=== PATIENT | female | born 1935 | race Caucasian/White ===

== ENCOUNTER 2018-06-07 08:21 | Day surgery (SDC) | payer MEDICARE, SELFPAY ==
[2018-05-29 09:41] VITALS: BMI 27.6
--- NOTE | 2018-06-07 09:12 | PM.PREOP ---
Pre-operative Note Interval Note History & Physical reviewed/Exam performed by Physician: Yes Changes to H&P: No
[2018-06-07] MEDS: LACTATED RINGERS 1,000 ML 42 ML IV (09:15)
[2018-06-07 09:16] VITALS: BP 140/73; PULSE 80; RESP 16; TEMP 36.1; O2SAT 97; BMI 27.6
[2018-06-07 09:33] LABS: BUN Creatinine Ratio 25.7 (6-22); Blood Urea Nitrogen 18 mg/dL (7-17); Calcium 9.3 mg/dL (8.4-10.2); Carbon Dioxide 22 mmol/L (22-32); Chloride 107 mmol/L (98-107); Estimated Glomerular Filt Rate > 60.0 mL/min (>60); Glucose 126 mg/dL (80-110); HEMOLYSIS 18 (0-50); Potassium 4.5 mmol/L (3.4-5.1); Sodium 138 mmol/L (137-145)
[2018-06-07] MEDS: CEFAZOLIN 2 GM/100 ML FROZ.PIGGY IV (09:42)
--- NOTE | 2018-06-07 09:55 | SUR.OPER ---
Lithotomy on padded OR bed, head on pillow, arms secured on padded arm boards at <90 degrees abduction. Legs secured in padded yellow fins stirrups.
[2018-06-07] MEDS: BUPIVACAINE 0.5% W/ EPI (PF) VIAL 30 ML INJ (10:00)
[2018-06-07 10:45] VITALS: BP 126/70; PULSE 83; RESP 12; TEMP 36.3; O2SAT 95
--- NOTE | 2018-06-07 10:49 | P.OP_ITS ---
Operative Date/Time/Diagnoses Date of procedure: 06/07/18 Time of procedure: 10:45 Post-op diagnosis: same Procedure & Clinicians Procedure: Colpocleisis Same procedure as scheduled: Yes Indications: Symptomatic cystocele and vaginal wall prolapse status post hysterectomy Surgeon: Jud Hurst Click Yes if Unassisted: Yes Anesthesia Type: Sedation and Local Operative Notes Findings: Cystocele that prolapses out of the hymen with mild rectocele and enterocele Closure Type: primary Specimen(s): none sent Estimated Blood Loss (mL): 50 Blood products transfused: none Procedure in detail: - Patient was brought to the operating room where she was in a supine position in [facility] and underwent IV sedation. She was prepped and draped in the usual sterile fashion. Her bladder was drained. 2 g of Ancef were in prior to beginning of the case. Warming was in place. Pulsatile stockings were in place. Area on anterior and posterior wall of the prolapse were marked with a marking pen and injected with a dilute solution of half percent Marcaine with epinephrine. The skin was incised with a scalpel and undermined with and removed removed with Metzenbaum scissors. bleeding was controlled with the Bovie. 2-0 Vicryl suture was used in an interrupted fashion to close anterior to posterior on the sides creating a tunnel from the vaginal apex to the external area. The vaginal incision was closed from anterior to posterior fully inverting the cervix. Counts of instruments and sponges were correct. Patient went to recovery room in good condition. Complications: none Condition: stable Disposition: same day surgery Plan for aftercare: Follow-up in 2 weeks
[2018-06-07 11:00] VITALS: BP 126/70; PULSE 83; RESP 16; TEMP 36.3; O2SAT 96
--- NOTE | 2018-06-07 11:09 | SUR.PHASEII ---
Pt arrived in phase II from OR, report received. VS stable.
== END 2018-06-07 11:30 | disposition home or self-care (01) ==
PROVIDERS: PCP Nurse Practitioner; Visit Provider Specialist
PROC: (CPT 57120; principal; 2018-06-07 09:45)
DX: N99.3 Prolapse of vaginal vault after hysterectomy (principal); N39.498 Other specified urinary incontinence; I10 Essential (primary) hypertension; E78.5 Hyperlipidemia, unspecified; Z90.710 Acquired absence of both cervix and uterus; I48.91 Unspecified atrial fibrillation; E11.9 Type 2 diabetes mellitus without complications; Z79.84 Long term (current) use of oral hypoglycemic drugs
CPT/HCPCS: 57120; 80048; J0690; J2704; J3010

== ENCOUNTER → 2018-10-14 11:18 | Outpatient (CLI) | payer MEDICARE, SELFPAY ==
--- NOTE | 2018-10-14 11:20 | DI.RAD.S_ITS ---
PROCEDURE: XR LUMBAR SPINE MIN 4V INDICATIONS: lower back pain TECHNIQUE: 5 views of the lumbar spine were acquired. COMPARISON: [facility] [place], BRYCE, SPINE LUMB 2 OR 3VW, 03/23/2016, 15:04. [facility], MR, MR LUMBAR SPINE WO CON, 10/14/2018, 11:33. [facility], CR, L-SPINE 2-3 VIEWS, 04/29/2015, 8:58. FINDINGS: Bones: T12 and L2 compression fractures, which have developed since 03/23/16 although no more recent comparison studies. L4 compression fracture appears unchanged. There is redemonstration of L3-L4 posterior spinal fixation and interbody cage graft in unchanged alignment. Hardware appears intact. Prominent lucent surrounding the L3 fixation screw is unchanged. Levoscoliosis. Severe diffuse disc space narrowing. Multilevel degenerative endplate sclerosis and spurring. Diffuse facet arthropathy. Soft tissues: Overlying bowel gas pattern is normal. No suspicious soft tissue calcifications. IMPRESSION: T12 and L2 compression fractures, new since 03/23/16 although no more recent comparison studies. Unchanged L4 compression fracture. Levoscoliosis as before. Diffuse lumbar and lower thoracic spondylosis and facet arthropathy. Prominent lucency surrounding the L3 pedicle screws however this appears grossly unchanged Dictated by: Anival Milton M.D. on 10/14/2018 at 14:12 Approved by: Anival Milton M.D. on 10/14/2018 at 14:16
--- NOTE | 2018-10-14 11:20 | DI.MRI.S_ITS ---
PROCEDURE: MR LUMBAR SPINE WO CON INDICATIONS: lower back pain TECHNIQUE: Noncontrast sagittal T1 spin echo and T2 fast echo, sagittal STIR, axial T1 and T2 fast spin echo through the lumbar spine. In cases with scoliosis, additional coronal T2 fast spin echo may be performed. COMPARISON: [facility], CR, XR LUMBAR SPINE MIN 4V, 10/14/2018, 12:12. FINDINGS: Image quality: Limited by susceptibility artifact related to metallic orthopedic hardware. Alignment and Curvature: There is trace L1-L2 and L2-L3 retrolisthesis. There is trace L4-L5 anterolisthesis. There is 32? of convex left lumbar spine scoliosis. Bones: Postsurgical changes compatible with L4-L5 posterior and interbody fusion are noted. Loss of anterior height noted of the L2 vertebral body compatible with chronic compression deformity. No acute vertebral body compression fractures. Spinal Cord: Conus medullaris terminates at the L1 level. Visualized cord demonstrates normal signal and size. Paraspinous Soft Tissues: No paravertebral masses. Multiple gallstones are visualized gallbladder with the largest visualized stone measuring 2.5 cm. L1-L2: Loss of disc signal and slight loss of disc height. Moderate, diffuse disc bulge. Moderate bilateral facet hypertrophy. Moderate narrowing of the central canal. Moderate bilateral neural foraminal narrowing. No definite neural impingement. L2-L3: Loss of disc signal and height. Moderate, diffuse disc bulge. Moderate bilateral facet hypertrophy. Mild to moderate narrowing of the central canal. Moderate right and mild left neural foraminal narrowing. No definite neural impingement. L3-L4: Loss of disc signal and slight loss of disc height. Mild, diffuse disc bulge. Mild bilateral facet hypertrophy. Mild to moderate narrowing of the central canal. Right neural foramen is obscured by susceptibility artifact related to metallic orthopedic hardware. Wcgi-ef-sjxltcks left neural foraminal narrowing. No definite neural impingement. L4-L5: Loss of disc signal. Mild, diffuse disc bulge. Moderate bilateral facet hypertrophy. Moderate narrowing of the central canal. Moderate right and nntqufio-lq-yrbrom left neural foraminal narrowing with slight compression of the exiting left L4 nerve root. L5-S1: Loss of disc signal and height. Moderate, diffuse disc bulge. Mild right and moderate left facet hypertrophy. Left central disc protrusion. Left central disc protrusion abuts and displaces the traversing left S1 nerve root. Severe left neural foraminal narrowing with compression of the exiting left L5 nerve root. IMPRESSION: 1. Postsurgical changes. 2. Convex left scoliosis. 3. Multilevel degenerative disc disease. 4. Multilevel facet arthropathy. 5. Moderate L1-L2 and L4-L5 central canal narrowing. Mild to moderate L2-L3 and L3-L4 central canal narrowing. 6. Severe left L5-S1 neural foraminal narrowing. Moderate right and ecvdcgeu-wt-itikqy left L4-L5 neural foraminal narrowing. Moderate bilateral L1-L2 neural foraminal narrowing. Moderate right and mild left L2-L3 neural foraminal narrowing. Mild to moderate left L3-L4 neural foraminal narrowing. 6. L5-S1-1 central disc protrusion which abuts and displaces the traversing left S1 nerve root. Please correlate clinically. 7. Compression of the exiting left L4 nerve root and the exiting left L5 nerve root secondary to neural foraminal narrowing. Please correlate with clinical data. 8. Cholelithiasis. Dictated by: Opal Christian MD, PhD on 10/14/2018 at 15:14 Approved by: Opal Christian MD, PhD on 10/14/2018 at 15:22
== END ==
PROVIDERS: PCP Nurse Practitioner; Visit Provider Registered Nurse
DX: M47.816 Spondylosis without myelopathy or radiculopathy, lumbar region (principal); M47.814 Spondylosis without myelopathy or radiculopathy, thoracic region; M47.817 Spondylosis without myelopathy or radiculopathy, lumbosacral region; M48.54XA Collapsed vertebra, not elsewhere classified, thoracic region, initial encounter for fracture; M48.56XA Collapsed vertebra, not elsewhere classified, lumbar region, initial encounter for fracture; M41.9 Scoliosis, unspecified; M48.061 Spinal stenosis, lumbar region without neurogenic claudication; M48.07 Spinal stenosis, lumbosacral region; M51.36 Other intervertebral disc degeneration, lumbar region; M51.27 Other intervertebral disc displacement, lumbosacral region; K80.20 Calculus of gallbladder without cholecystitis without obstruction; Z98.1 Arthrodesis status
CPT/HCPCS: 72110; 72148

== ENCOUNTER → 2019-02-17 13:25 | Outpatient (CLI) | payer MEDICARE, OTHER, SELFPAY ==
--- NOTE | 2019-02-17 | DI.MRI.S_ITS ---
PROCEDURE: MR LUMBAR SPINE WO CON INDICATIONS: Wedge compression fracture TECHNIQUE: Noncontrast sagittal T1 spin echo and T2 fast echo, sagittal STIR, axial T1 and T2 fast spin echo through the lumbar spine. In cases with scoliosis, additional coronal T2 fast spin echo may be performed. COMPARISON: [facility], CT, CT CHEST ABDOMEN PELVIS WITHOUT CONTRAST, 12/22/2018, 15:07. [facility], MR, MR LUMBAR SPINE WO CON, 10/14/2018, 11:33. FINDINGS: Image quality: Diagnostic. Alignment and Curvature: Again noted is prior laminectomy and transpedicular fusion at L3-4 level unchanged from prior study. Moderate dextroscoliosis of thoracolumbar spine and compensatory levoscoliosis of lumbar spine is unchanged from previous study. Bone Marrow: There is interval development of significant marrow edema involving L1 vertebral body with subtle internal linear fluid signal concerning for nondisplaced fracture of L1 vertebral body. Chronic appearing mild anterior wedge compression deformity at L2 level is seen with up to 10% loss of L2 vertebral body height. No other compression fracture is seen the lumbar spine vertebral bodies. Spinal Cord: Conus medullaris terminates at the T12-L1 level. Visualized cord demonstrates normal signal and size. Paraspinous Soft Tissues: No paravertebral masses. T12-L1: No significant disc bulge. Mild retropulsion of L1 posterior wall is noted causing kzro-py-mocnjxiq central canal stenosis. There is mild compression of descending left L1 nerve root and exiting left T12 nerve root. L1-L2: Decreased intervertebral disc space and degenerative endplate changes are seen. There is broad-based disc bulge and bilateral facet arthrosis causing moderate central canal stenosis and left worse in right bilateral neuroforaminal narrowing. There is compression of bilateral exiting L1 nerve roots. L2-L3: Decreased intervertebral disc space is seen. Broad-based disc bulge and bilateral facet arthrosis is noted causing moderate to severe central canal stenosis and bilateral neuroforaminal narrowing. Bulging disc likely contacting the bilateral exiting L2 nerve roots. L3-L4: Post fusion changes are noted at this level. Bilateral facet arthrosis is seen with mild hypertrophy of ligamentum flavum with mild central canal stenosis and mild bilateral neuroforaminal narrowing. L4-L5: Broad-based disc bulge and bilateral facet arthrosis with hypertrophy of ligamentum flavum is seen causing mild central canal stenosis and moderate bilateral neuroforaminal narrowing. Bulging disc likely contacting the bilateral exiting L4 nerve roots. L5-S1: Decreased intervertebral disc space and degenerative endplate changes are seen. There is diffuse disc bulge and central to left-sided disc herniation with bilateral facet arthrosis causing mild to moderate central canal stenosis worsened by bilateral neuroforaminal narrowing. Bulging disc is seen contacting left L5 and S1 nerve roots. IMPRESSION: 1. Prior transpedicular fusion at L3-4 level. S-shaped scoliosis of thoracolumbar spine is again seen and unchanged. 2. Interval development of marrow edema and subtle fracture line through L1 vertebral bodies suggestive of acute to subacute nondisplaced L1 fracture. No significant loss of L1 vertebral body height at this time. Slight retropulsion of L1 posterior wall causing mild central canal stenosis at this level. Chronic appearing mild anterior wedge compression deformity at L2 level. 3. Degenerative disc bulge and bilateral facet arthrosis throughout lumbar spine causing isbj-ra-klwfztaj central canal stenosis and bilateral neuroforaminal narrowing as described in detail above. Dictated by: Duong Jean M.D. on 02/17/2019 at 15:55 Approved by: Duong Jean M.D. on 02/17/2019 at 16:08
== END ==
PROVIDERS: Family Provider Nurse Practitioner; PCP Nurse Practitioner; Visit Provider Orthopaedic Surgery
DX: S32.020A Wedge compression fracture of second lumbar vertebra, initial encounter for closed fracture (principal); M47.816 Spondylosis without myelopathy or radiculopathy, lumbar region; M51.36 Other intervertebral disc degeneration, lumbar region; M48.061 Spinal stenosis, lumbar region without neurogenic claudication; M47.817 Spondylosis without myelopathy or radiculopathy, lumbosacral region; M51.37 Other intervertebral disc degeneration, lumbosacral region; M48.07 Spinal stenosis, lumbosacral region; M41.85 Other forms of scoliosis, thoracolumbar region; Z98.1 Arthrodesis status
CPT/HCPCS: 72148

== ENCOUNTER 2019-03-18 12:44 | Day surgery (SDC) | payer MEDICARE, OTHER, SELFPAY ==
[2019-03-18] VITALS (9 sets, daily range): BP systolic 100–187; BP diastolic 52–83; PULSE 58–94; RESP 9–19; TEMP 35.9–36.9; O2SAT 9–98
--- NOTE | 2019-03-18 | PATH_ITS ---
[facility] Accession Number: [id number] . 01 Material submitted: . bone - L1 BONE . 01 Clinical history: . LUMBAR KYPHOPLASTY . 02 Diagnosis: L1 Bone, Biopsy: Fragments of bone with no diagnostic abnormality. No evidence of neoplasm. MRV 03/20/2019 1009 Local . 02 Electronically signed: . Malcolm Wolf MD, PhD, Pathologist NPI- [id number] . 01 Gross description: . Received in formalin, labeled L1 bone, are multiple fragments of jang gritty bone (0.2 x 0.1 x less than 0.1 cm in aggregate). Decalcified and entirely submitted in cassette A1. ([id number]) /[facility] 03/19/2019 1434 Local . 02 Pathologist provided ICD-10: M41.56 . 02 CPT . 624399 Performed at: 01 [facility] [address] [facility] [place], [place], [place] [id number] MD Salvador Boateng MD Phone: [phone] Performed at: 02 [facility] [address] [place], [place] [id number] MD Che Laughlin MD Phone: [phone]
--- NOTE | 2019-03-18 | DI.RAD.S_ITS ---
PROCEDURE: XR LUMBAR SPINE 2-3V INDICATIONS: L1 KYPHO TECHNIQUE: 3 views of the lumbar spine were acquired. COMPARISON: [facility], , XR LUMBAR SPINE MIN 4V, 10/14/2018, 12:12. FINDINGS: Intraoperative images demonstrating localization and cement and what appears to be L1. Mild cement extravasation is noted. IMPRESSION: L1 kyphoplasty images as above. Dictated by: Nahomi Zendejas M.D. on 03/18/2019 at 16:33 Approved by: Nahomi Zendejas M.D. on 03/18/2019 at 16:34
[2019-03-18] MEDS: LACTATED RINGERS 1,000 ML 42 ML IV (13:26)
--- NOTE | 2019-03-18 13:33 | PM.PREOP ---
Pre-operative Note Interval Note History & Physical reviewed/Exam performed by Physician: Yes Changes to H&P: No
--- NOTE | 2019-03-18 13:33 | PM.OP.1 ---
Operative Date/Time/Diagnoses Date of procedure: 03/18/19 Time of procedure: 15:01 Pre-op diagnosis: L1 compression fracture Back pain Post-op diagnosis: same Procedure & Clinicians Procedure: L1 kyphoplasty Same procedure as scheduled: Yes Indications: [age] year old female with intractable pain from compression fracture. They had failed conservative management and requested operative intervention. Risks and benefits of surgery were discussed and appropriate consents were obtained. Surgeon: Nam Hong Click Yes if Unassisted: Yes Anesthesia Type: General Operative Notes Findings: None Closure Type: primary Specimen(s): other (L1 vertebral body) Estimated Blood Loss (mL): 2 Procedure in detail: The patient was brought to the operating room and intubated on the table. They were then rolled over to the well-padded prone position. Time-out was performed. We confirmed positioning with two fluoroscopy views. Due to her severe scoliosis, we had to rotate the table significantly to get our images. The back was prepped and draped in the standard sterile fashion. Preoperative antibiotics were given. Using fluoroscopic guidance, the planned incision site was infiltrated with Marcaine with epinephrine and injected down to the entry site of the left pedicle of L1. A small stab incision was made and we advanced a Jamshiedi needle down the left pedicle into the vertebral body. A bone biopsy was harvested from this and sent to pathology. We then passed the DFine osteotome and opened it up to create a void inside the vertebral body. We then began injecting the cement. This was done with frequent fluoroscopy imaging. There was no extravasation. Once we had good fill of the L1 vertebral body the injection was stopped and the trocars were removed. Final x-rays were taken. The wound was cleaned. Steri-Strips and sterile dressing were placed. Patient was rolled over, extubated, and brought to recovery without complications. Complications: none Post-operative Condition: stable Disposition: PACU Plan for aftercare: Outpatient. Activity as tolerated.
[2019-03-18] MEDS: CEFAZOLIN 2 GM/100 ML FROZ.PIGGY IV (14:20)
--- NOTE | 2019-03-18 14:41 | SUR.OPER ---
Prone on padded Kypho bed, head in foam head support, gel chest rolls, gel pad under knees, pillows x2 under lower legs, toes free of pressure, arms secured on padded arm boards at <90 degrees abduction. Taped to bed, placed by surgeon at thighs, chest, and lower legs
--- NOTE | 2019-03-18 14:43 | SUR.OPER ---
Reddness noted on patient's sacrum and buttocks during positioning. Right medial buttock also noted to have breakdown of skin with opened red sore approximately [address] Hong aware.
[2019-03-18] MEDS: BUPIVACAINE 0.25% W/ EPI (PF) 10 ML VIAL 60 ML INJ (14:50)
--- NOTE | 2019-03-18 15:00 | SUR.OPER ---
Allevyn Gentle Border bandage 3in x 3in placed on right opened wound area of right buttock per Dr. Chavez at the end of the case.
== END 2019-03-18 17:00 | disposition home or self-care (01) ==
PROVIDERS: PCP Nurse Practitioner; Visit Provider Orthopaedic Surgery
PROC: (CPT 22514; principal; 2019-03-18 15:45)
DX: S32.010A Wedge compression fracture of first lumbar vertebra, initial encounter for closed fracture (principal); M41.56 Other secondary scoliosis, lumbar region; M54.9 Dorsalgia, unspecified; W06.XXXA Fall from bed, initial encounter; M48.00 Spinal stenosis, site unspecified; E66.9 Obesity, unspecified; I10 Essential (primary) hypertension; E78.00 Pure hypercholesterolemia, unspecified; E11.9 Type 2 diabetes mellitus without complications; Z79.84 Long term (current) use of oral hypoglycemic drugs
CPT/HCPCS: 22514; 72100; 76000; C1776; J0690; J2704; J3010

== ENCOUNTER → 2019-07-26 10:45 | Outpatient (CLI) | payer SELFPAY ==
[2019-07-29 07:00] LABS: COVID19 Sendout Not Detected (Not Detected)
== END ==
PROVIDERS: PCP Nurse Practitioner; Referring Provider Internal Medicine; Visit Provider Internal Medicine
DX: Z11.59 Encounter for screening for other viral diseases (principal)
CPT/HCPCS: 87635

== ENCOUNTER → 2019-08-13 13:33 | Outpatient (CLI) | payer MEDICARE, OTHER, SELFPAY ==
--- NOTE | 2019-08-13 13:37 | DI.RAD.S_ITS ---
PROCEDURE: XR PEL MIN 3V INDICATIONS: Fractured left femur and ischium TECHNIQUE: 3 view(s) of the pelvis acquired. COMPARISON: [facility], CT, CT KNEE LEFT WITHOUT CONTRAST, 07/07/2019, 4:52. [facility], CT, CT PELVIS WITHOUT CONTRAST, 07/07/2019, 6:21. [facility], CR, XR FEMUR LT MIN 2V, 08/13/2019, 13:45. FINDINGS: Bones: Osteopenia. Fracture of the left inferior pubic ramus seen on prior CT is not well-visualized. No dislocation. No suspicious bony lesions. Pedicle screws at L3-L4. Left hip total arthroplasty. Proximal left femur ORIF partially visualized. No periprosthetic lucency seen. Severe right hip DJD. Soft tissues: Prominent stool in the colon. No suspicious soft tissue calcifications. Vascular calcifications. IMPRESSION: Prior left inferior pubic ramus fracture is less conspicuous. Osteopenia. Dictated by: Dhruv Hu M.D. on 08/13/2019 at 14:28 Approved by: Dhruv Hu M.D. on 08/13/2019 at 14:37
--- NOTE | 2019-08-13 13:37 | DI.RAD.S_ITS ---
PROCEDURE: XR FEMUR LT MIN 2V INDICATIONS: Left femur and ischium fracture TECHNIQUE: 4 views of the femur were acquired. COMPARISON: [facility], CR, XR FEMUR 2+ VIEWS LEFT, 07/07/2019, 3:56. [facility], CT, CT KNEE LEFT WITHOUT CONTRAST, 07/07/2019, 4:52. [facility], CT, CT PELVIS WITHOUT CONTRAST, 07/07/2019, 6:21. FINDINGS: Bones: Post ORIF of distal femur fracture. There is near-anatomic alignment. No pedrito-screw lucency. Left hip total arthroplasty. No periprosthetic lucency. Previously seen proximal fibular fractures is not well evaluated. No suspicious bony lesions. Soft tissues: No suspicious soft tissue calcifications or masses. Vascular calcifications. Small knee joint effusion. IMPRESSION: Near-anatomic alignment post ORIF of distal femur fracture. Left total hip arthroplasty is in satisfactory position. Dictated by: Dhruv Hu M.D. on 08/13/2019 at 14:37 Approved by: Dhruv Hu M.D. on 08/13/2019 at 14:41
== END ==
PROVIDERS: PCP Nurse Practitioner; Referring Provider Registered Nurse; Visit Provider Registered Nurse
DX: S32.602D Unspecified fracture of left ischium, subsequent encounter for fracture with routine healing (principal); S72.492D Other fracture of lower end of left femur, subsequent encounter for closed fracture with routine healing; M16.11 Unilateral primary osteoarthritis, right hip; M85.88 Other specified disorders of bone density and structure, other site; X58.XXXD Exposure to other specified factors, subsequent encounter; Z96.642 Presence of left artificial hip joint
CPT/HCPCS: 72190; 73552

== ENCOUNTER 2019-09-01 11:15 | Emergency (ER) | payer MEDICARE, OTHER, SELFPAY ==
[2019-09-01] VITALS (9 sets, daily range): BP systolic 129–175; BP diastolic 62–72; PULSE 56–72; RESP 10–27; O2SAT 97–100
--- NOTE | 2019-09-01 | DI.CT.S_ITS ---
PROCEDURE: CT STROKE INDICATIONS: CODE STROKE TECHNIQUE: Noncontrast 4.5 mm thick angled axial sections acquired from the foramen magnum to the vertex, with coronal reformats. For radiation dose reduction, the following was used: automated exposure control, adjustment of mA and/or kV according to patient size. COMPARISON: [facility], CT, CT HEAD WITHOUT CONTRAST, 12/22/2018, 15:05. FINDINGS: Image quality: Excellent. CSF spaces: Basal cisterns are patent. No extra-axial fluid collections. The ventricles are symmetric in size and shape. Brain: No intracranial bleeds or masses. There is cerebral volume loss for age, with resultant ventricular and sulcal prominence. There are periventricular and deep white matter chronic small vessel ischemic changes. There also is a new finding of subacute ischemic injury involving the right frontal lobe, where low attenuation extending from the cortex into the deep white matter measures up to approximately 4 cm transverse and 3.8 cm craniocaudad with an AP dimension of approximately 4.9 cm. No hemorrhage is associated, mild effacement of the adjacent cortical sulci is present. There is intracranial internal carotid artery atherosclerosis. Skull and face: Calvarium and visualized facial bones appear intact, without suspicious lesions. Sinuses: Visualized sinuses and mastoids are clear. IMPRESSION: Subacute stroke present without internal hemorrhage involving the right frontal area, with mild mass effect. Findings immediately called to the emergency room physician caring for the patient at 11:30 in the morning. This study fulfills neurological imaging criteria for inclusion or exclusion of acute stroke therapies based on available published neurological guidelines. Dictated by: Dagoberto Kaplan M.D. on 09/01/2019 at 11:28 Approved by: Dagoberto Kaplan M.D. on 09/01/2019 at 11:33
--- NOTE | 2019-09-01 11:28 | ED_ITS ---
HPI - Neuro Symptoms/Deficit General Chief Complaint: Neuro Symptoms/Deficit Stated Complaint: Code Stroke Time Seen by Provider: 09/01/19 11:17 Source: EMS Mode of arrival: EMS Limitations: other History of Present Illness HPI Narrative: CC: Stroke with aphasia and left hemiparesis HPI: The patient is an 84-year-old female who is a resident at [facility] who suddenly this morning at approximately 10:38 a.m. developed acute aphasia and unable to move her left side. The patient has a history of atrial fibrillation and and is on Xarelto. Approximately 6 weeks ago the patient fell and fractured her leg and also developed a stroke which affected her left side and was treated at [facility]. It is my understanding that at that time she questionably received tPA. At this time the patient is a do not resuscitate comfort measures only. I discussed the situation with the patient's son-in-law Ciaran Portillo who confirmed these orders. At 11:30 a.m. the radiologist called and stated the patient had subacute edematous stroke in the right frontal lobe. The patient was able to talk when she arrived here she denied having a headache short of breath or having chest pain. She did not have any belly pain did not feel sick to her stomach when having nausea did not have any diarrhea or urinary symptoms. On Anticoagulants: Yes Related Data Home Medications Medication Instructions Recorded Confirmed alendronate 70 mg tablet 70 mg PO QWEEK 05/09/18 10/21/18 atorvastatin 40 mg tablet 40 mg PO DAILY 05/09/18 10/21/18 diltiazem HCl 300 mg 300 mg PO DAILY 05/09/18 10/21/18 capsule,extended release 24 hr glimepiride 4 mg tablet 4 mg PO QAM 05/09/18 10/21/18 lisinopril 20 mg tablet 20 mg PO DAILY 05/09/18 10/21/18 metformin 850 mg tablet 850 mg PO DAILY 05/09/18 10/21/18 multivitamin-calcium carb-iron 1 tab PO DAILY tab 05/09/18 10/21/18 warfarin 5 mg tablet 5 mg PO 4XW 05/09/18 10/21/18 warfarin 5 mg tablet 7.5 mg PO 3XW 05/09/18 10/21/18 warfarin 5 mg PO DAILY 03/18/19 03/18/19 Previous Rx's Medication Instructions Recorded tramadol 50 mg tablet 50 mg PO TID PRN #60 tab 09/16/18 lidocaine 5 % topical patch 1 patch TOP DAILY #15 each MDD 12 10/21/18 hours in a 24 hour period Allergies Allergy/AdvReac Type Severity Reaction Status Date / Time oxycodone [OXYCODONE] AdvReac Unknown NAUSEA Verified 04/04/19 12:14 Review of Systems Review of Systems Narrative: Her review of systems were limited in all were negative except for those that we could obtain an mentioned in the history of present illness. Patient History Medical History A-fib (Acute) Diabetes (Acute) HLD (hyperlipidemia) (Acute) HTN (hypertension) (Acute) Urinary incontinence (Acute) Surgical History H/O: hysterectomy (Acute ~1991) History of lumbar fusion (Acute 04/29/15) History of total left hip arthroplasty (Acute ~2012) Social History household members: spouse Smoking Status: Never smoker alcohol intake: current Smoking Status: Never smoker alcohol intake frequency: holidays/special occasions only Substance Use Type: does not use Exam Narrative Exam Narrative: PHYSICAL EXAM: CONSTITUTIONAL: Awake, speaks with a slurred speech. Does not move her left side. HEAD: AT/NC EENT: PERRL, FROM of eyes, no nystagmus field of vision appears to be intact. NOSE:No epistaxis or nasal drainage MOUTH:Oral mucosa is moist and pink, posterior pharynx is without erythema or exudate. The patient smile is symmetrical. She is able to puff of her cheeks symmetrically. She moves her tongue symmetrically. She is able to wrinkle her forehead and close her eyes. She follows directions. NECK: Supple, no obvious JVD, Trachea is midline without stridor, no palpable LN. SPINE: Palpationof the cervical, Thoracic, Lumbar or Sacral spine reveals no gross deformity or tenderness. No CVA tenderness. THORAX: No deformity, retractions, chest wall tenderness. LUNGS: Clear, symmetrical breath sounds without respiratory distress. HEART: Normal heart tones, regular rhythm and rate without murmur. ABDOMEN: Soft, non-tender, no guarding, rebound, rigidity or palpable mass. EXTREMITIES: No edema, deformity, tenderness or cyanosis. SKIN: No rash, bruising, petechiae or purpura. NEURO: Awake, cranial nerves II-XII are symmetrical , right arm and right leg but is unable to move her left side.. Her NIH Stroke Scale was 12. Initial Vital Signs Initial Vital Signs: Vital Signs Pulse Rate 72 09/01/19 11:35 Respiratory Rate 21 09/01/19 11:35 Pulse Oximetry 100 09/01/19 11:35 Scores NIH Stroke Scale Level of Conciousness: Not alert, but arousable by minor stim to obey, answer or respond Ask month/age: Answers both questions correctly. Open/close eyes, close hand: Performs one task correctly Best gaze horizontal: Partial gaze palsy, can be overcome by finger tracking, head turning Visual gabriel: No visual loss Facial palsy: Normal symetrical movement Left arm drift: Some effort against gravity, cannot maintain, drifts down to bed Right arm drift: No drift for full 10 sec Left leg drift: Some effort against gravity, cannot maintain, drifts down to bed Right leg drift: No drift for full 10 sec Limb ataxia: Present in two limbs Sensory on face/arms/legs: Mild to moderate sensory loss, can tell touch Best language: Mild to moderate, slurs some words Dysarthria: Mild to mod,some slurring Extinction or inattention: No abnormality Total NIH Stroke scale score: 12 Course Course Course Narrative: The patient is on Xarelto. The radiologist called and stated that the patient has a subacute stroke in the right frontal lobe. Will discuss with [facility]. The patient is also a do not resuscitate comfort only. 1220: I discussed the patient with the [facility] neurologist and with the patient being a do not resuscitate comfort measures only her subacute right frontal lobe stroke being on Xarelto their recommendation is to make her comfortable and no further evaluation or intervention. 1304: I discussed the patient with Dr. Pérez who is going to discuss the patient with the social workers but believes that the patient can be [facility] since she is a do not resuscitate comfort measures only. 1333: I discussed the patient with the nurse practitioner at [facility] who accepted the patient. She will write her the patient's comfort medications. Morphine concentrate sublingually and scopolamine for any secretions. The patient will be transferred back to [facility]. Orders Ordered: ED Orders 09/01/19 11:35 Type and Screen Stat 09/01/19 12:17 Urinalysis and Microscopic Stat Urine Culture Stat Urine Drug Screen, Rapid Stat Discontinued Medications Sodium Chloride (Normal Saline 0.9%) 1,000 mls @ 150 mls/hr IV CONT ODALIS Last Admin: 09/01/19 11:40 Dose: 150 mls/hr Documented by: GABY Vital Signs Vital signs: Vital Signs - 8 hr 09/01/19 12:31 09/01/19 12:34 09/01/19 12:45 Pulse Rate 56 L 69 64 Respiratory Rate 13 27 H 16 Blood Pressure 161/67 H 129/62 150/65 H Pulse Oximetry 100 100 99 09/01/19 13:00 09/01/19 13:15 Pulse Rate 62 57 L Respiratory Rate 10 L 16 Blood Pressure 175/72 H 156/72 H Pulse Oximetry 99 100 MDM - Neuro Symptoms/Deficit Medical Records Attestation: I reviewed the patient's medical records. Lab Data Attestation: I reviewed the patient's lab results. Result diagrams: 09/01/19 11:02 09/01/19 11:02 Labs: Lab Results 09/01/19 09/01/19 09/01/19 Range/Units 11:02 11:02 11:02 WBC 10.8 (4.5-11.0) X10^3/uL RBC 4.00 (4.0-5.2) X10^6/uL Hgb 12.6 (12.0-16.0) g/dL Hct 37.7 (36-46) % MCV 94.3 (80-100) fL MCH 31.5 (26-34) PG MCHC 33.4 (30-36) % RDW 16.9 H (11.6-14.8) % Plt Count 342 (150-400) X10^3/uL Neut % (Auto) 79.9 H (50-75) % Lymph % (Auto) 12.6 L (25-40) % [place] % (Auto) 6.0 (3-14) % Eos % (Auto) 0.9 L (2-4) % Baso % (Auto) 0.6 (0-2) % Neut # (Auto) 8600 H (9279-2534) /uL Lymph # (Auto) 1400 (7170-4870) /uL [place] # (Auto) 700 (0-900) /uL Eos # (Auto) 100 (0-450) /uL Baso # (Auto) 100 (0-100) /uL PT 20.4 H (10.1-12.7) SECONDS INR 1.8 H (0.9-1.3) APTT 34 (26.4-36.2) SECONDS Sodium 131 L (137-145) mmol/L Potassium 4.6 (3.4-5.1) mmol/L Chloride 97 L (98-107) mmol/L Carbon Dioxide 27 (22-32) mmol/L BUN 30 H (7-17) mg/dL Creatinine 0.82 (0.52-1.04) mg/dL Estimated GFR > 60.0 (>60) mL/min BUN/Creatinine Ratio 36.6 H (6-22) Glucose 279 H (80-110) mg/dL Calcium 9.0 (8.4-10.2) mg/dL Total Bilirubin 0.5 (0.2-1.3) mg/dL AST 19 (14-36) IU/L ALT 10 (<35) IU/L Alkaline Phosphatase 93 (38-126) U/L Total Creatine Kinase 50 (30-135) U/L CK-MB (CK-2) TNP CK-MB (CK-2) Rel Index TNP Troponin I < 0.012 (0.01-0.034) ng/mL Total Protein 6.1 L (6.3-8.2) g/dL Albumin 3.0 L (3.5-5.0) g/dL Globulin 3.1 (1.7-4.1) g/dL Albumin/Globulin Ratio 1.0 (1.0-2.8) Urine Color Urine Appearance Urine pH (4.5-8.0) Ur Specific [place] (1.000-1.035) Urine Protein (Negative) Urine Glucose (UA) (Negative) g/dL Urine Ketones (NEGATIVE) Urine Occult Blood (Negative) Urine Nitrate (Negative) Urine Bilirubin (NEGATIVE) Urine Urobilinogen (0.2) E.U./dL Ur Leukocyte Esterase (NEGATIVE) Urine RBC (0-5/HPF) Urine WBC (0-5/HPF) Ur Squamous Epith Cells (0-5/HPF) Amorphous Sediment Urine Bacteria (None) Urine Mucus (Negative) Ur Culture Indicated? U Opiates 300ng/mL cut (Negative) Ur Oxycodone Screen (Negative) Urine Methadone Screen (Negative) Ur Barbiturates Screen (Negative) U Tricyclic Antidepress (Negative) Ur Phencyclidine Scrn (Negative) Ur Amphetamines Screen (Negative) U Methamphetamines Scrn (Negative) Ur MDMA Scrn (Ecstasy) (Negative) U Benzodiazepines Scrn (Negative) Urine Cocaine Screen (Negative) U Marijuana (THC) Screen (Negative) Blood Type Antibody Screen 09/01/19 09/01/19 09/01/19 Range/Units 11:35 12:17 12:17 WBC (4.5-11.0) X10^3/uL RBC (4.0-5.2) X10^6/uL Hgb (12.0-16.0) g/dL Hct (36-46) % MCV (80-100) fL MCH (26-34) PG MCHC (30-36) % RDW (11.6-14.8) % Plt Count (150-400) X10^3/uL Neut % (Auto) (50-75) % Lymph % (Auto) (25-40) % Bosque % (Auto) (3-14) % Eos % (Auto) (2-4) % Baso % (Auto) (0-2) % Neut # (Auto) (9679-4655) /uL Lymph # (Auto) (1375-0192) /uL Bosque # (Auto) (0-900) /uL Eos # (Auto) (0-450) /uL Baso # (Auto) (0-100) /uL PT (10.1-12.7) SECONDS INR (0.9-1.3) APTT (26.4-36.2) SECONDS Sodium (137-145) mmol/L Potassium (3.4-5.1) mmol/L Chloride (98-107) mmol/L Carbon Dioxide (22-32) mmol/L BUN (7-17) mg/dL Creatinine (0.52-1.04) mg/dL Estimated GFR (>60) mL/min BUN/Creatinine Ratio (6-22) Glucose (80-110) mg/dL Calcium (8.4-10.2) mg/dL Total Bilirubin (0.2-1.3) mg/dL AST (14-36) IU/L ALT (<35) IU/L Alkaline Phosphatase (38-126) U/L Total Creatine Kinase (30-135) U/L CK-MB (CK-2) CK-MB (CK-2) Rel Index Troponin I (0.01-0.034) ng/mL Total Protein (6.3-8.2) g/dL Albumin (3.5-5.0) g/dL Globulin (1.7-4.1) g/dL Albumin/Globulin Ratio (1.0-2.8) Urine Color Yellow Urine Appearance Cloudy Urine pH 5.0 (4.5-8.0) Ur Specific [place] 1.025 (1.000-1.035) Urine Protein Negative (Negative) Urine Glucose (UA) Negative (Negative) g/dL Urine Ketones Negative (NEGATIVE) Urine Occult Blood 1+ H (Negative) Urine Nitrate Negative (Negative) Urine Bilirubin Negative (NEGATIVE) Urine Urobilinogen 0.2 (0.2) E.U./dL Ur Leukocyte Esterase 2+ H (NEGATIVE) Urine RBC 1-5/hpf (0-5/HPF) Urine WBC >100/hpf H (0-5/HPF) Ur Squamous Epith Cells 0-1 /hpf (0-5/HPF) Amorphous Sediment 1+ Urine Bacteria Many (>30) H (None) Urine Mucus 2+ H (Negative) Ur Culture Indicated? Specimen cultured U Opiates 300ng/mL cut Negative (Negative) Ur Oxycodone Screen Negative (Negative) Urine Methadone Screen Negative (Negative) Ur Barbiturates Screen Negative (Negative) U Tricyclic Antidepress Negative (Negative) Ur Phencyclidine Scrn Negative (Negative) Ur Amphetamines Screen Negative (Negative) U Methamphetamines Scrn Negative (Negative) Ur MDMA Scrn (Ecstasy) Negative (Negative) U Benzodiazepines Scrn Negative (Negative) Urine Cocaine Screen Negative (Negative) U Marijuana (THC) Screen Negative (Negative) Blood Type O Positive Antibody Screen Negative Point of Care Testing Glucose POC 265 ECG Data Attestation: I personally reviewed and interpreted this ECG as follows: Interpretation: The patient's EKG obtained at 11:2 9:13 a.m. revealed atrial fibrillation with a ventricular rate of 68. Her QRS was 80 milliseconds in duration. QTC was 412 milliseconds. Left axis deviation head oliveira. The patient has a small R-wave in lead III otherwise it looks like a QS wave with upright T-waves. The patient has a QS wave in lead V1 with a flutter baseline such that we are unable to really identify true P-wave. There are no acute diagnostic ST segment changes or T-wave changes. Discharge Plan Departure [facility] Clinical Impression: Chronic atrial fibrillation Stroke Qualifiers: CVA mechanism: unspecified Qualified Code(s): I63.9 - Cerebral infarction, unspecified Cerebrovascular accident Qualifiers: CVA mechanism: embolism Precerebral and cerebral artery: unspecified cerebral artery Qualified Code(s): I63.40 - Cerebral infarction due to embolism of unspecified cerebral artery Hemiparesis Qualifiers: Hemiparesis etiology: late effect of cerebrovascular disease Cerebrovascular disease type: unspecified Hemiparesis laterality: left nondominant side Qualified Code(s): I69.954 - Hemiplegia and hemiparesis following unspecified cerebrovascular disease affecting left non-dominant side Discharge Date/Time: 09/01/19 14:20 Instructions: DI for Stroke-Ischemic, DI for Atrial Fibrillation Activity Restrictions/Additional Instructions: 1. Follow-up with the [facility]IN[employer] INSPECTOR and physician 2. Return to the emergency department if there are any problems that is unable to be taking care of by the nurse practitioner. 3. Take the medications as prescribed and discussed with the caring nurse ly patel. Referrals: Rachel Naidu ARNP [Primary Care Provider] -
--- NOTE | 2019-09-01 11:29 | DI.RAD.S_ITS ---
PROCEDURE: XR CHEST 1V INDICATIONS: stroke left hemiparesis TECHNIQUE: One view of the chest was acquired. COMPARISON: [facility], CR, XR CHEST 1 VIEW, 07/07/2019, 4:18. FINDINGS: Surgical changes and devices: Partially visualized lumbar spine fixation hardware. Status post L1 kyphoplasty. Lungs and pleura: Lungs are clear. No pleural effusions or pneumothorax. Mediastinum: Mediastinal contours appear normal. Heart is enlarged Bones and chest wall: Left third and fourth lateral rib fractures of indeterminate age. No suspicious bony lesions. Overlying soft tissues appear unremarkable. IMPRESSION: No acute cardiopulmonary disease process. Dictated by: Opal Christian MD, PhD on 09/01/2019 at 11:45 Approved by: Opal Christian MD, PhD on 09/01/2019 at 11:46
[2019-09-01 11:34] LABS: Add Manual Diff / Slide Review NO; Basophils Absolute Auto 100 /uL (0-100); Basophils Percent Auto 0.6 % (0-2); Eosinophils Absolute Auto 100 /uL (0-450); Eosinophils Percent Auto 0.9 % (2-4); Hematocrit 37.7 % (36-46); Hemoglobin 12.6 g/dL (12.0-16.0); Lymphocytes Absolute Auto 1400 /uL (1100-4500); Lymphocytes Percent Auto 12.6 % (25-40); Mean Corpuscular HGB Conc 33.4 % (30-36); Mean Corpuscular Hemoglobin 31.5 PG (26-34); Mean Corpuscular Volume 94.3 fL (80-100); Monocytes Absolute Auto 700 /uL (0-900); Neutrophils Absolute Auto 8600 /uL (1500-7000); Neutrophils Percent Auto 79.9 % (50-75); Platelet Count 342 X10^3/uL (150-400); Red Cell Distribution Width 16.9 % (11.6-14.8); White Blood Cell Count 10.8 X10^3/uL (4.5-11.0)
[2019-09-01 11:36] LABS: INR 1.8 (0.9-1.3); Prothrombin Time 20.4 SECONDS (10.1-12.7)
[2019-09-01 11:38] LABS: PTT Partial Thromboplastin Tim 34 SECONDS (26.4-36.2)
[2019-09-01 11:40] LABS: Alanine Aminotransferase 10 IU/L (<35); Alkaline Phosphatase 93 U/L (38-126); Aspartate Aminotransferase 19 IU/L (14-36); BUN Creatinine Ratio 36.6 (6-22); Bilirubin Total 0.5 mg/dL (0.2-1.3); Blood Urea Nitrogen 30 mg/dL (7-17); Carbon Dioxide 27 mmol/L (22-32); Chloride 97 mmol/L (98-107); Creatine Kinase 50 U/L (30-135); Estimated Glomerular Filt Rate > 60.0 mL/min (>60); Globulin 3.1 g/dL (1.7-4.1); Glucose 279 mg/dL (80-110); HEMOLYSIS < 15 (0-50); Potassium 4.6 mmol/L (3.4-5.1); Sodium 131 mmol/L (137-145); Total Protein 6.1 g/dL (6.3-8.2)
[2019-09-01] MEDS: SODIUM CHLORIDE 0.9% 1,000 ML 150 ML IV (11:40)
[2019-09-01 11:52] LABS: Troponin I < 0.012 ng/mL (0.01-0.034)
[2019-09-01 12:39] LABS: Appearance Urine UA CLOUDY; Bilirubin Urine UA NEGATIVE (NEGATIVE); Color Urine UA YELLOW; Glucose Urine UA NEGATIVE (Negative); Ketones Urine UA NEGATIVE (NEGATIVE); Leukocyte Esterase Urine UA 2+ (NEGATIVE); Nitrite Urine UA NEGATIVE (Negative); Occult Blood Urine UA 1+ (Negative); Protein Urine UA NEGATIVE (Negative); Specific Gravity Urine UA 1.025 (1.000-1.035); Urobilinogen Urine UA 0.2 E.U./dL (0.2)
[2019-09-01 12:47] LABS: Amorphous Sediment Urine 1+; Bacteria Urine Many (>30); Culture Indicated Urine Specimen Cultured; Mucus Urine 2+ (Negative); RBC Urine 1-5/HPF (0-5/HPF); Squamous Epithelial Cell Urine 0-1 /HPF (0-5/HPF); WBC Urine >100/HPF (0-5/HPF)
[2019-09-01 12:53] LABS: UR Morphine/Opiate cutoff 300 Negative (Negative); Ur Creatinine Normal (Normal); Ur Specific Gravity Normal (Normal); Urine Amphetamines Negative (Negative); Urine Barbiturates Negative (Negative); Urine Benzodiazepines Negative (Negative); Urine Cocaine Negative (Negative); Urine MDMA Negative (Negative); Urine Methadone Negative (Negative); Urine Methamphetamines Negative (Negative); Urine Oxycodone Negative (Negative); Urine Phencyclidine Negative (Negative); Urine Tetrahydrocannabinol Negative (Negative); Urine Tricyclic Antidepressant Negative (Negative); Urine pH Normal (Normal)
--- NOTE | 2019-09-01 13:41 | CM.SWNOTE ---
Patient is an 84 year old female who was brought to [facility] ER with code stroke. Pt imaging shows frontal lobe stroke and pt is DNR/Comfort Only Measures. MANAGER OF GLOBAL received call from Hospitalist to help determine if pt can return to her facility from the ER as [place] recommends no further intervention as pt is comfort care and just to keep her comfortable. TINY called [facility] admissions July and confirmed that pt was admitted to them for SNF rehab on 07/16/19 and did not progress with therapy and on 07/31/19 she was changed to DNR/Comfort only and has remained at their facility for comfort not rehab. July does not anticipate any issues with accepting pt back from the ED as no medical reason to admit to the hospital and July will have their DNS or FARM MACHINERY SET UP MECHANIC contact Dr. Rebeca HUERTA MD to further discuss return to their facility under comfort. TINY updated Hospitalist who will update ED MD. CROW Krishnamurthy
== END 2019-09-01 14:20 ==
PROVIDERS: Emergency Provider Emergency Medicine; PCP Nurse Practitioner
DX: I63.40 Cerebral infarction due to embolism of unspecified cerebral artery (principal); I69.954 Hemiplegia and hemiparesis following unspecified cerebrovascular disease affecting left non-dominant side; I48.20 Chronic atrial fibrillation, unspecified; Z79.01 Long term (current) use of anticoagulants
CPT/HCPCS: 36415; 70450; 71045; 80053; 80305; 81001; 82550; 82962; 84484; 85025; 85610; 85730; 86850; 86900; 86901; 87077; 87086; 93005; 93010; 99285